=== PATIENT | male | born 1955 | race Caucasian/White ===

== ENCOUNTER → 2024-05-25 06:16 | Day surgery (SDC) | payer OTHER, SELFPAY | LOC: GI 06:16 | PROVIDERS: ATTENDING PHYSICIAN Internal Medicine | DX: Z12.11 Encounter for screening for malignant neoplasm of colon (principal); K57.30 Diverticulosis of large intestine without perforation or abscess without bleeding; Z86.0100 Personal history of colon polyps, unspecified | CPT/HCPCS: G0105 ==

== ENCOUNTER 2024-10-20 09:24 | Emergency (ER) | payer OTHER, SELFPAY ==
[2024-10-20 09:26] VITALS: BP 146/81
[2024-10-20 10:20] VITALS: BMI 26.6
[2024-10-20 10:21] VITALS: BP 126/81
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
[2024-10-20] MEDS: ADACEL 0.5 ML IM (10:44)
[2024-10-20] MEDS: RABAVERT RABIES VACC W-DILUENT 2.5 UNIT IM (10:45)
[2024-10-20] MEDS: AUGMENTIN 875 MG/125 MG 1 TABLET PO (10:48)
[2024-10-20] MEDS: HyperRAB 1500 UNIT IM (10:49)
== END 2024-10-20 11:13 | disposition home or self-care (01) ==
LOC: EMR 09:24
PROVIDERS: EMERGENCY PHYSICIAN Emergency Medicine; FAMILY PHYSICIAN Nurse Practitioner Family
DX: S80.271A Other superficial bite of right knee, initial encounter (principal); W55.81XA Bitten by other mammals, initial encounter; Z20.3 Contact with and (suspected) exposure to rabies; Z23 Encounter for immunization; Z29.14 Encounter for prophylactic rabies immune globulin
CPT/HCPCS: 99284; 96372; 90471; 90472; 90375; 90675; 90715

== ENCOUNTER 2024-10-27 15:17 | Outpatient (RCR) | payer OTHER, SELFPAY ==
[2024-10-24 14:45] VITALS: BP 136/69
[2024-10-24] MEDS: RABAVERT RABIES VACC W-DILUENT 2.5 UNIT IM (15:00)
[2024-10-27] MEDS: RABAVERT RABIES VACC W-DILUENT 2.5 UNIT IM (15:34)
[2024-10-27 15:39] VITALS: BP 120/69
== END 2024-10-31 14:12 | disposition home or self-care (01) ==
LOC: OID 15:17
PROVIDERS: ATTENDING PHYSICIAN Physician Assistant
DX: Z20.3 Contact with and (suspected) exposure to rabies (principal); Z23 Encounter for immunization
CPT/HCPCS: 90471; 90675

== ENCOUNTER 2024-11-03 15:15 | Outpatient (RCR) | payer OTHER, SELFPAY ==
[2024-11-03 15:15] VITALS: BP 112/77
[2024-11-03] MEDS: RABAVERT RABIES VACC W-DILUENT 2.5 UNIT IM (15:35)
== END 2024-11-07 11:33 | disposition home or self-care (01) ==
LOC: OID 15:15
PROVIDERS: ATTENDING PHYSICIAN Physician Assistant; FAMILY PHYSICIAN Nurse Practitioner Family
DX: Z20.3 Contact with and (suspected) exposure to rabies (principal); Z23 Encounter for immunization
CPT/HCPCS: 90471; 90675